=== PATIENT | male | born 1965 | race American Indian/Alaskan Native ===

== ENCOUNTER 2020-10-28 10:16 | Emergency (ER) | payer BC ==
--- NOTE | 2020-10-28 12:49 | Event Note ---
ED Screening Note Date of service: 10/28/20 Time: 12:47 ED Screening Note: At this 5-year-old male presents to the ER today with complaints of left testicular pain and concern for left inguinal hernia. Patient states that he has been having left testicular pain "off and on for months" but it seems like his pain is getting worse since last Wednesday. He states that he feels he is having left testicular swelling and his pain is worse at night when he lays down and when he is walking. He denies any redness to his testicle or bruising. He also feels like there is a bulge in his left groin area. He reports mild dysuria but denies any UTI any other UTI symptoms. He denies any abdominal alessio n, nausea vomiting. 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 His urologist who did the surgery [address] Alan Das This initial assessment/diagnostic orders/clinical plan/treatment(s) is/are subject to change based on patients health status, clinical progression and re- assessment by fellow clinical providers in the ED. Further treatment and workup at subsequent clinical providers discretion. Patient/guardian urged not to elope from the ED as their condition may be serious if not clinically assessed and managed. Initial orders include: Labs including testicular ultrasound
[2020-10-28 13:48] LABS: Basophils # (Auto) 0.1 K/mm3 (0.0-0.1); Basophils % (Auto) 0.8 % (0.0-1.8); Eosinophils % (Auto) 0.4 % (0.0-4.3); Hematocrit 46.3 % (35.5-45.6); Hemoglobin 15.5 gm/dl (11.8-15.2); Lymphocytes # (Auto) 1.4 K/mm3 (1.2-5.4); Lymphocytes % (Auto) 22.6 % (13.4-35.0); Mean Corpuscular HGB Conc 34 % (32-34); Mean Corpuscular Volume 84 fl (84-94); Monocytes # (Auto) 0.3 K/mm3 (0.0-0.8); Monocytes % (Auto) 5.5 % (0.0-7.3); Platelet Count 314 K/mm3 (140-440); Red Blood Count 5.49 M/mm3 (3.65-5.03); Red Cell Distribution Width 13.5 % (13.2-15.2)
--- NOTE | 2020-10-28 13:55 | Ultrasound Report ---
SCROTAL ULTRASOUND WITH DOPPLER HISTORY: Left testicular pain COMPARISON: None. TECHNIQUE: Grayscale, color and spectral Doppler images were obtained of the scrotum. FINDINGS: RIGHT: The right testicle has been surgically removed. Prosthetic implant is noted. LEFT: Left testicle: 2 mm cyst is noted. No evidence for mass or hyperemia. Left testicular size: 4.8 x 2.3 x 3.5 cm. Left epididymis: No significant abnormality. Additional findings: None. IMPRESSION: Previous right orchidectomy with prosthetic right testicle. 2 mm left testicular cyst, otherwise, unremarkable exam. Signer Name: Romulo La Jr, MD Signed: 10/28/2020 1:51 PM Workstation Name: [id number]
[2020-10-28 13:57] LABS: Alanine Aminotransferase 35 units/L (7-56); Albumin 4.6 g/dL (3.9-5); BUN/Creatinine Ratio 13; Blood Urea Nitrogen 16 mg/dL (9-20); Calcium 10.4 mg/dL (8.4-10.2); Hemolysis Index 6
[2020-10-28 14:43] LABS: Bilirubin,Urine NEG (Negative); Blood,Urine SM (Negative); Color,Urine Yellow (Yellow); Mucus,Urine FEW /HPF; Protein,Urine <15 mg/dL mg/dL (Negative); Urobilinogen,Urine < 2.0 mg/dL (<2.0); WBC,Urine < 1.0 /HPF (0.0-6.0)
--- NOTE | 2020-10-28 18:06 | Emergency Department Report ---
ED General Adult HPI - General Chief complaint: Urogenital-Male Stated complaint: LT GROIN PAINS Time Seen by Provider: 10/28/20 17:52 Source: patient Mode of arrival: Ambulatory Limitations: No Limitations - History of Present Illness Initial comments: 55-year-old -[place] male presents to the ER today with complaints of left testicular pain and concern for left inguinal hernia. Patient states that he has been having left testicular pain "off and on for months" but it seems like his pain is getting worse since last Wednesday. He states that he feels he is having left testicular swelling and his pain is worse at night when he lays down and when he is walking. He denies any redness to his testicle or bruising. He also feels like there is a bulge in his left groin area. He reports mild dysuria but denies any UTI any other UTI symptoms. He does report left suprapubic pain. Patient states he was sent here by his PCP today for an urgent evaluation. Past medical history includes hypertension and a right inguinal hernia repair and right prosthetic testicle. Patient also denies any fever/chills/sweats, hematochezia, or constipation. Severity scale (0 -10): 9 - Related Data Home Medications Medication Instructions Recorded Confirmed Last Taken Ergocalciferol(Vitamin D2)(Nf) 400 unit PO DAILY 01/18/17 01/25/17 01/24/17 [Vitamin D (Nf)] Vitamin E (Dl,Tocopheryl Acet) 1,000 unit PO DAILY 01/18/17 01/25/17 01/24/17 [Vitamin E] amLODIPine [Norvasc] 10 mg PO DAILY 01/18/17 01/25/17 01/25/17 04:45 Previous Rx's Medication Instructions Recorded Last Taken Type Naproxen [Naprosyn TAB] 500 mg PO BID PRN #20 tablet 10/28/20 Unknown Rx Allergies Allergy/AdvReac Type Severity Reaction Status Date / Time No Known Allergies Allergy Verified 01/18/17 13:45 ED Review of Systems ROS: Stated complaint: LT GROIN PAINS Other details as noted in HPI Constitutional: denies: chills, diaphoresis, fever, malaise, weakness Respiratory: denies: cough, shortness of breath Cardiovascular: denies: chest pain Gastrointestinal: as per HPI. denies: nausea, vomiting, constipation Musculoskeletal: denies: back pain Skin: denies: change in color Hematological/Lymphatic: denies: swollen glands ED Past Medical Hx - Past Medical History Previous Medical History?: Yes Hx Hypertension: Yes (X 1 1/2 YR) Hx HIV: No - Surgical History Past Surgical History?: Yes Additional Surgical History: inguinal hernia repair. - Social History Smoking Status: Former Smoker - Medications Home Medications: Home Medications Medication Instructions Recorded Confirmed Last Taken Type Ergocalciferol(Vitamin D2)(Nf) 400 unit PO DAILY 01/18/17 01/25/17 01/24/17 History [Vitamin D (Nf)] Vitamin E (Dl,Tocopheryl Acet) 1,000 unit PO DAILY 01/18/17 01/25/17 01/24/17 History [Vitamin E] amLODIPine [Norvasc] 10 mg PO DAILY 01/18/17 01/25/17 01/25/17 04:45 History Naproxen [Naprosyn TAB] 500 mg PO BID PRN #20 tablet 10/28/20 Unknown Rx ED Physical Exam - General Limitations: No Limitations General appearance: alert, in no apparent distress - Head Head exam: Present: atraumatic, normocephalic - Eye Eye exam: Present: normal appearance. Absent: scleral icterus - Neck Neck exam: Present: normal inspection - Respiratory Respiratory exam: Present: normal lung sounds bilaterally. Absent: respiratory distress - Cardiovascular Cardiovascular Exam: Present: regular rate, normal rhythm - GI/Abdominal GI/Abdominal exam: Present: soft, normal bowel sounds. Absent: tenderness (Left suprapubic/inguinal with minimal swelling noted in the inguinal area without erythema), guarding, rebound, rigid - exam: Present: testicular tenderness (Left; no skin changes noted or swelling). Absent: urethral discharge External exam: Absent: erythema - Extremities Exam Extremities exam: Present: normal inspection - Back Exam Back exam: Present: normal inspection - Neurological Exam Neurological exam: Present: alert, oriented X3 - Psychiatric Psychiatric exam: Present: normal affect, normal mood ED Course Vital Signs 10/28/20 10/28/20 10/28/20 12:06 18:15 18:52 Temperature 97.8 F Pulse Rate 92 H 82 Respiratory 18 16 16 Rate Blood Pressure 188/111 143/93 [Right] O2 Sat by Pulse 98 100 Oximetry ED Medical Decision Making - Lab Data Result diagrams: 10/28/20 13:22 10/28/20 13:22 Lab Results 10/28/20 10/28/20 10/28/20 Range/Units 13:03 13:22 13:22 WBC 6.3 (4.5-11.0) K/mm3 RBC 5.49 H (3.65-5.03) M/mm3 Hgb 15.5 H (11.8-15.2) gm/dl Hct 46.3 H (35.5-45.6) % MCV 84 (84-94) fl MCH 28 (28-32) pg MCHC 34 (32-34) % RDW 13.5 (13.2-15.2) % Plt Count 314 (140-440) K/mm3 Lymph % (Auto) 22.6 (13.4-35.0) % [place] % (Auto) 5.5 (0.0-7.3) % Eos % (Auto) 0.4 (0.0-4.3) % Baso % (Auto) 0.8 (0.0-1.8) % Lymph # (Auto) 1.4 (1.2-5.4) K/mm3 [place] # (Auto) 0.3 (0.0-0.8) K/mm3 Eos # (Auto) 0.0 (0.0-0.4) K/mm3 Baso # (Auto) 0.1 (0.0-0.1) K/mm3 Seg Neutrophils % 70.7 H (40.0-70.0) % Seg Neutrophils # 4.4 (1.8-7.7) K/mm3 Sodium 136 L (137-145) mmol/L Potassium 4.0 (3.6-5.0) mmol/L Chloride 100.8 (98-107) mmol/L Carbon Dioxide 23 (22-30) mmol/L Anion Gap 16 mmol/L BUN 16 (9-20) mg/dL Creatinine 1.2 (0.8-1.3) mg/dL Estimated GFR > 60 ml/min BUN/Creatinine Ratio 13 % Glucose 111 H (75-100) mg/dL Calcium 10.4 H (8.4-10.2) mg/dL Total Bilirubin 0.30 (0.1-1.2) mg/dL AST 25 (5-40) units/L ALT 35 (7-56) units/L Alkaline Phosphatase 88 (35-129) units/L Total Protein 8.1 (6.3-8.2) g/dL Albumin 4.6 (3.9-5) g/dL Albumin/Globulin Ratio 1.3 % Urine Color Yellow (Yellow) Urine Turbidity Clear (Clear) Urine pH 5.0 (5.0-7.0) Ur Specific [place] 1.018 (1.003-1.030) Urine Protein <15 mg/dl (Negative) mg/dL Urine Glucose (UA) Neg (Negative) mg/dL Urine Ketones Neg (Negative) mg/dL Urine Blood Sm (Negative) Urine Nitrite Neg (Negative) Ur Reducing Substances Not Reportable Urine Bilirubin Neg (Negative) Urine Ictotest Not Reportable Urine Urobilinogen < 2.0 (<2.0) mg/dL Ur Leukocyte Esterase Neg (Negative) Urine WBC (Auto) < 1.0 (0.0-6.0) /HPF Urine RBC (Auto) 1.0 (0.0-6.0) /HPF U Epithel Cells (Auto) 1.0 (0-13.0) /HPF Urine Mucus Few /HPF - Radiology Data Radiology results: report reviewed SCROTAL ULTRASOUND WITH DOPPLER HISTORY: Left testicular pain COMPARISON: None. TECHNIQUE: Grayscale, color and spectral Doppler images were obtained of the scrotum. FINDINGS: RIGHT: The right testicle has been surgically removed. Prosthetic implant is noted. LEFT: Left testicle: 2 mm cyst is noted. No evidence for mass or hyperemia. Left testicular size: 4.8 x 2.3 x 3.5 cm. Left epididymis: No significant abnormality. Additional findings: None. IMPRESSION: Previous right orchidectomy with prosthetic right testicle. 2 mm left testicular cyst, otherwise, unremarkable exam. CT ABDOMEN AND PELVIS WITH IV CONTRAST INDICATION: L suprapubic/inguinal pain,swelling/L teste pain. COMPARISON: None available. TECHNIQUE: Axial CT images were obtained through the abdomen and pelvis after 100 mL IV contrast. All CT scans at this location are performed using CT dose reduction for ALARA by means of automated exposure control. FINDINGS -- ABDOMEN: Lung Bases: No acute abnormality. Liver: Several low-density lesions most of which are too small to actually characterize but may represent cysts. Gallbladder: Normal. Bile Ducts: Normal. Pancreas: Normal. Spleen: Normal. Adrenals: Normal. Right Kidney and Proximal Ureter: Normal. Left Kidney and Proximal Ureter: Normal. Stomach and Bowel: Normal. Lymph Nodes: No significant adenopathy. Aorta: No significant abnormality. IVC: Normal. Additional Findings: Fat-containing periumbilical hernia.. FINDINGS -- PELVIS: Urinary Bladder and Distal Ureters: Normal. Reproductive Organs: No acute abnormality. Appendix: Normal. Bowel: No acute abnormality. Free Fluid: None. Lymph Nodes: No significant adenopathy. Additional Findings: Tiny fat-containing left inguinal hernia. Skeletal System: No acute abnormality. IMPRESSION: Tiny fat-containing periumbilical and left inguinal hernias. No bowel herniation is identified. No bowel obstruction or inflammatory process appreciated. - Medical Decision Making 55-year-old -[place] male presents to the ER today with complaints of left testicular pain and concern for left inguinal hernia. Patient states that he has been having left testicular pain "off and on for months" but it seems like his pain is getting worse since last Wednesday. He states that he feels he is having left testicular swelling and his pain is worse at night when he lays down and when he is walking. He denies any redness to his testicle or bruising. He also feels like there is a bulge in his left groin area. He reports mild dysuria but denies any UTI any other UTI symptoms. He does report left suprapubic pain. Patient states he was sent here by his PCP today for an urgent evaluation. Past medical history includes hypertension and a right inguinal hernia repair and right prosthetic testicle. Patient also denies any fever/chills/sweats, hematochezia, or constipation. Patient has tenderness to palpation of the left testicle on exam with mild swelling of the left inguinal area noted without cellulitic changes. No significant abnormalities noted on CBC, CMP, or UA. Testicular ultrasound shows 2 mm left testicular cyst without other acute findings. CT abdomen performed and shows tiny fat-containing periumbilical and left inguinal hernias without acute abnormalities. Patient given Toradol and his pain is controlled. Recommend follow-up with evaluation and treatment. Referral provided. He is well-appearing, his vitals are within normal limits, he is stable for discharge home. Discussed findings, diagnosis, and plan of care with patient-he verbalizes understanding and denies any further questions at this time. Strict return precautions were discussed in detail with patient who again verbalizes understanding Critical care attestation.: If time is entered above; I have spent that time in minutes in the direct care of this critically ill patient, excluding procedure time. ED Disposition Clinical Impression: Left testicular pain, Left inguinal hernia Disposition: TO HOME OR SELFCARE Is pt being admited?: No Condition: Stable Instructions: Inguinal Hernia, Adult Prescriptions: Naproxen [Naprosyn TAB] 500 mg PO BID PRN #20 tablet PRN Reason: pain Referrals: MARILEE HERNANDEZ MD [Primary Care Provider] - 3-5 Days MOLLY PEREZ MD [Staff Physician] - 3-5 Days Forms: Work/School Release Form(ED)
[2020-10-28] MEDS ORDERED: KETOROLAC 30 MG/1 ML INJ IV ONE (18:08)
[2020-10-28 18:54] VITALS: BP 143/93
--- NOTE | 2020-10-28 18:56 | Cat Scan Report ---
CT ABDOMEN AND PELVIS WITH IV CONTRAST INDICATION: L suprapubic/inguinal pain,swelling/L teste pain. COMPARISON: None available. TECHNIQUE: Axial CT images were obtained through the abdomen and pelvis after 100 mL IV contrast. All CT scans a t this location are performed using CT dose reduction for ALARA by means of automated exposure contro l. FINDINGS -- ABDOMEN: Lung Bases: No acute abnormality. Liver: Several low-density lesions most of which are too small to actually characterize but may repre sent cysts. Gallbladder: Normal. Bile Ducts: Normal. Pancreas: Normal. Spleen: Normal. Adrenals: Normal. Right Kidney and Proximal Ureter: Normal. Left Kidney and Proximal Ureter: Normal. Stomach and Bowel: Normal. Lymph Nodes: No significant adenopathy. Aorta: No significant abnormality. IVC: Normal. Additional Findings: Fat-containing periumbilical hernia.. FINDINGS -- PELVIS: Urinary Bladder and Distal Ureters: Normal. Reproductive Organs: No acute abnormality. Appendix: Normal. Bowel: No acute abnormality. Free Fluid: None. Lymph Nodes: No significant adenopathy. Additional Findings: Tiny fat-containing left inguinal hernia. Skeletal System: No acute abnormality. IMPRESSION: Tiny fat-containing periumbilical and left inguinal hernias. No bowel herniation is identified. No rebecca wel obstruction or inflammatory process appreciated. Signer Name: Robert Hilton MD Signed: 10/28/2020 6:51 PM Workstation Name: [id number]
== END 2020-10-28 19:45 | disposition home or self-care (01) ==
LOC: ED 10:16
DX: N50.812 Left testicular pain (principal); K40.90 Unilateral inguinal hernia, without obstruction or gangrene, not specified as recurrent; I10 Essential (primary) hypertension; Z98.890 Other specified postprocedural states; Z87.891 Personal history of nicotine dependence
CPT/HCPCS: 36415; 74177; 80053; 81001; 85025; 93976; 96374; 99284; J1885; Q9967; 93975